=== PATIENT | female | born 1955 | race Caucasian/White ===

== ENCOUNTER 2024-11-19 10:07 | Inpatient (IN) | payer OTHER ==
[~2024-11-19] VITALS: Ht 162.6 cm; Wt 85.5 kg
[2024-11-19] VITALS (7 sets, daily range): BP systolic 118–138; BP diastolic 61–81; PULSE 79–94; RESP 16–18; TEMP 97.8–98; O2SAT 95–100
[2024-11-19] MEDS: VANCOMYCIN HCL 1000 MG VL ONE (09:33)
[~2024-11-19 10:07] MED LIST: ALBU108A5 IN; ASCO500T11 GT; CALC-134 XX; CELECOXIB 100 MG CAP PO ONE; CETI-195 PO; CRAN125T PO; FAMO20TA10 GT; FENO145T27 OR; IBUP-1456 PO; LISI40TA16 PO; MOME1AER3 IN; MULT-1018 PO; PROG200C21 PO; SERT-160 PO
[2024-11-19] MEDS ORDERED: ONDANSETRON HCL 4 MG/2 ML VIAL ONE (10:29)
[2024-11-19] MEDS ORDERED: PROPOFOL 10 MG/ML 20 ML IV ONE ×2 (10:29→12:56)
[2024-11-19] MEDS ORDERED: LIDOCAINE 1% INJ PF 5ML AMP ONE ×2 (10:29→11:27)
[2024-11-19] MEDS ORDERED: GLYCOPYRROLATE 0.2 MG/ML 1ML VIAL ONE (10:29)
[2024-11-19] MEDS ORDERED: DexAMETHasone SOD PHOS 10MG/1ML VIAL INJ ONE (10:29)
[2024-11-19] MEDS ORDERED: KETOROLAC TROMETH 30 MG/ML 1ML VIAL ONE (10:29)
[2024-11-19] MEDS: CELECOXIB 100 MG CAP ONE (10:38)
[2024-11-19] MEDS: ACETAMINOPHEN IV 1000 MG/100ML (10MG/ML) IV ONE (10:46)
[2024-11-19] MEDS: GABAPENTIN 300 MG CAP PO ONE (10:46)
[2024-11-19] MEDS: CELECOXIB 100 MG CAP PO ONE (10:46)
[2024-11-19] MEDS: ceFAZolin 2 GM/D5W50ml 50 ML IV ONE (11:15)
[2024-11-19] MEDS ORDERED: SODIUM CHLORIDE LOCK 10 ML ONE ×2 (11:25→11:27)
[2024-11-19] MEDS ORDERED: PHENYLEPHRINE HCL 10 MG/ML VL ONE (11:25)
[2024-11-19] MEDS: TRANEXAMIC ACID 20 ML ONE (11:30)
--- NOTE | 2024-11-19 12:58 | DVHOP2 ---
Operative Report - 2 Report Details Date: 11/19/24 Preop Diagnosis: Right hip degenerative arthritis Postop Diagnosis: Right hip degenerative arthritis Surgeon: Georgina Bai MD Washing Machine Operator: Moncho TOMAS Anesthesiologist: Johny Busby CRNA Anesthesia: Regional Drains: Mark closed wound suction Implant: Jaylen cup size 48 flat poly liner two acetabular screws size four femoral stem plus four neck with a 32 ceramic head Consent: The patient was informed of the risks and benefits of the procedure. These include but are not limited to complications of anesthesia, postoperative infection, incomplete relief of symptoms, recurrence of symptoms, damage to blood vessels, nerves and tendons, deep venous thrombosis, pulmonary embolism and possible need for repeat surgery in the future. Complications: None Estimated Blood Loss: 75 cc Fluids: See anesthesia record Findings: Osteophytes, denuded cartilage with eburnated bone Indications for Surgery: Right hip degenerative arthritis with severe pain and functional impairment despite nonoperative manage Name of Procedure Performed Right total hip arthroplasty Procedure Details Procedure Details: The patient was brought to the operating room and given spinal anesthetic with adequate analgesia obtained. The patient was positioned lateral decubitus with the operative side up, stabilized with hip positioners. Axillary roll applied and lower extremities well-padded. Preop patient received IV Ancef, cefepime and IV tranexamic acid. Surgical timeout was performed verifying patient, laterality and procedure. The hip and lower extremity were prepped and draped in sterile fashion. Incision was made over the greater trochanter. Subcutaneous dissection and hemostasis were performed with Bovie and aqua mantis. I identified the fascia which was incised with Bovie and Charnley retractor inserted. I identified the gluteus medius that was split at the junction of its anterior and middle thirds with Bovie then incised off the anterior greater trochanter. I incised the anterior gluteus minimus which was elevated off the capsule. I elevated the reflected head of the rectus. I then performed anterior capsulectomy with Bovie. I extended capsular incision posterior medially and superior laterally. The head was dislocated. Femoral neck cut was made with saw and head removed. Head diameter was calipered on the back table. I adjusted retractors to expose the acetabulum. I circumferentially removed labral tissue with Bovie. I removed foveal tissue with Bovie, curette and rongeur. I then began reaming sequentially paying attention to inclination and version as I went. I trialed which was somewhat stable and acetabular implant was brought into the field and tapped into the acetabulum with fair fixation achieved. I decided to place acetabular screws. I removed the cap drilled and placed a 20 mm screw with poor bite I then switched it to a 25 mm screw with only fair bite so I decided to place a 2nd screw. Again I removed the cap, drilled and placed a 20 mm screw with fair bite. I then brought up the flat liner which was spun to make sure there was no soft tissue entrapment then tapped in and stability verified. I then brought my attention to the proximal femur. The leg was placed in the sterile bag anteriorly. I cleaned up soft tissue at the greater trochanter shoulder with Bovie. I then used a rongeur to clip the lateral neck. I then used a box osteotome, canal finder and lateralizing rasp. I sequentially broached to size four. I revised the femoral neck cut with calcar planer. I trialed with a plus four neck length and 32 head which was stable. Intraoperative AP pelvis x-ray was obtained to verify length, offset and implant size. The hip was dislocated. Neck and head trial removed. Broach was removed. I tapped in the femoral implant with good fixation achieved. I cleaned and dried the Romero taper and tapped on the ceramic head. The hip was again reduced and tested for stability which was good. I irrigated with bactisurge. I placed a 2 grams of vancomycin in the deep and superficial wound. I repaired the minimus and medius to the anterior greater trochanter with #[5] FiberWire in running fashion . I oversewed the repair with 0 Vicryl. I repaired the fascia with #1 Ethibond i nterrupted [id number]. Deep subcutaneous tissue was closed with 0 Vicryl. Superficial subcutaneous tissue was closed with 2-0 Vicryl. The skin was closed with sree. I then applied the Mark closed wound suction. Patient tolerated the procedure well and was brought to the recovery room in stable condition. Condition Stable Disposition Still a Patient GEORGINA BAI MD Nov 19, 2024 12:58
[2024-11-19] MEDS ORDERED: ONDANSETRON HCL 4 MG/2 ML VIAL IV PRN ×2 (13:00→13:30)
[2024-11-19] MEDS ORDERED: ALBUTEROL SULF HFA 90MCG INH 200DOSE IN SCH (13:00)
--- NOTE | 2024-11-19 13:03 | DVH ---
EXAM: XY PELVIS AP CLINICAL INDICATION: INTRAOP TECHNIQUE: XY PELVIS AP Comparison: None FINDINGS/IMPRESSION: Postsurgical changes status post right total hip arthroplasty. Prior left total hip arthroplasty.
[2024-11-19] MEDS ORDERED: FLUMAZENIL 0.1 MG/ML INJ 10ML MDV IV PRN (13:30)
[2024-11-19] MEDS ORDERED: ePHEDrine SULFATE 50 MG/ML AMP IV PRN (13:30)
[2024-11-19] MEDS ORDERED: hydrALAZINE HCL 20 MG/ML VL IV PRN (13:30)
[2024-11-19] MEDS ORDERED: NALOXONE HCL 0.4 MG/ML VIAL IV PRN (13:30)
[2024-11-19] MEDS ORDERED: fentaNYL CITRATE 100 MCG/2 ML VL IV PRN (13:30)
[2024-11-19] MEDS ORDERED: HYDROmorphone HCL 2 MG/ML VL/or syr IV PRN (13:30)
[2024-11-19] MEDS ORDERED: ALBUTEROL MEDNEB 2.5 mg/3ml NEB NEB PRN (14:00)
--- NOTE | 2024-11-19 14:21 | DVH ---
CLINICAL INDICATION: postop TECHNIQUE: XY PELVIS AP Comparison: XY PELVIS AP on DOS: 11/19/24 FINDINGS/IMPRESSION: : There is no evidence of acute fracture or dislocation. Small volume gas in the left hip. Bilateral hip arthroplasty. Post left hip arthroplasty.
[2024-11-19] MEDS: oxyCODONE HCL 5MG TAB PO PRN ×2 (14:33→20:00)
[2024-11-19] MEDS: SODIUM CHLORIDE 0.9% 1,000 ML IV SCH (15:45)
[2024-11-19] MEDS: ceFAZolin 2 GM/D5W50ml 50 ML IV SCH (17:16)
[2024-11-19] MEDS: FAMOTIDINE 20 MG TAB PO SCH (17:17)
[2024-11-19] MEDS: KETOROLAC TROMETH 30 MG/ML 1ML VIAL IV SCH (17:17)
[2024-11-19] MEDS: ACETAMINOPHEN 325 MG TAB PO SCH (17:17)
[2024-11-19] MEDS: Mometasone Furoate-Formoterol (Dulera) IN SCH (22:00)
[2024-11-19] MEDS: PREGABALIN 25 MG CAP PO SCH (22:15)
[2024-11-20] VITALS (11 sets, daily range): BP systolic 121–145; BP diastolic 61–83; PULSE 73–99; RESP 12–18; TEMP 97.7–99.6; O2SAT 94–98
[2024-11-20] MEDS: oxyCODONE HCL 5MG TAB PO PRN (03:16)
[2024-11-20 06:56] LABS: Basophils # (auto) 0 10 ^3/uL (0-0.2); Basophils % (auto) 0.2 % (0.0-2.0); Eosinophils # (auto) 0 10 ^3/uL (0-0.8); Eosinophils % (auto) 0.1 % (0.0-7.0); Hematocrit 31.9 % (36.0-46.0); Hemoglobin 10.7 g/dL (12.2-16.2); Lymphocytes # (auto) 1.3 10 ^3/uL (0.4-5.4); Lymphocytes % (auto) 14.6 % (10.0-50.0); Mean Corpuscular Hemoglobin 30.4 pg (28.0-32.0); Mean Corpuscular Hgb Conc. 33.6 g/dL (32.0-36.0); Mean Corpuscular Volume 90.6 fL (80.0-100.0); Monocytes # (auto) 0.9 10 ^3/uL (0-1.3); Monocytes % (auto) 10.5 % (0.0-12.0); Neutrophils # (auto) 6.5 10 ^3/uL (1.6-8.6); Neutrophils % (auto) 74.6 % (37.0-80.0); Platelet Count (auto) 308 10^3/uL (140-450); Red Blood Cells 3.52 10^6/uL (4.0-5.20); Red Cell Distribution Width 14.4 % (11.8-14.3); White Blood Cell 8.8 10^3/uL (4.4-10.8)
[2024-11-20 07:07] LABS: Potassium 4.6 mmol/L (3.5-5.1)
[2024-11-20 07:08] LABS: Anion Gap 6 (5-15); Calcium 9.8 mg/dL (8.7-10.4); Carbon Dioxide 26 mmol/L (20-31)
[2024-11-20 07:09] LABS: Chloride 113 mmol/L (98-107); Sodium 145 mmol/L (136-145)
[2024-11-20 07:14] LABS: BUN/Creatinine Ratio 23.4 (10.0-20.0); Blood Urea Nitrogen 18 mg/dL (9-23); Glucose 122 mg/dL (74-106)
[2024-11-20] MEDS: PROGESTERONE MICRONIZED 200 MG PO SCH (10:00)
[2024-11-20] MEDS: LISINOPRIL 20 MG TAB PO SCH (10:59)
[2024-11-20] MEDS: SERTRALINE HCL 50 MG TAB PO SCH (11:00)
[2024-11-20] MEDS: APIXABAN 2.5 MG TAB PO SCH (11:00)
--- NOTE | 2024-11-20 13:38 | DVHPN2 ---
Progress Note - Dictate Date Seen: Nov 20, 2024 Medical Necessity Reason Pt with a Central, PICC or Fol: No Subjective Patient was lying comfortably in bed during my evaluation and reports some postoperative hip pain that is only minimally improved with the help pain medication. Patient reports that she is also experiencing a lot of pain to her hip and weakness from her knee down which is causing her leg to give out on her when she tries to walk and has been unable to walk as of yet but has been only able to stand and take a few steps at bedside. Patient was otherwise feeling well denying any other complaints or concerns during my evaluation. vital signs Vital Sign Date Time Temp Pulse Resp B/P (MAP) Pulse Ox O2 Delivery O2 Flow Rate FiO2 11/20/24 10:59 121/65 11/20/24 09:00 98.3 73 12 98 98.3 11/20/24 06:33 Room Air 11/20/24 06:33 0 21 Total Intake and Output 11/19/24 11/19/24 11/20/24 14:59 22:59 06:59 Intake Total 170 ml 530 ml 2050 ml Balance 170 ml 530 ml 2050 ml medications Current Medications Medications Dose Ordered Sig/Elroy Route Start Time Stop Time Status Last Admin Dose Admin Albuterol 8.5 mcg PRN IN 11/19/24 13:00 UNV Famotidine 20 mg DAILY PO 11/19/24 13:46 11/20/24 10:59 20 MG Patient Own Medication 10 mg DAILYP PRN PO 11/19/24 13:00 Lisinopril 40 mg DAILY PO 11/20/24 10:00 11/20/24 10:59 40 MG Patient Own Medication 1 aer BID IN 11/19/24 22:00 Patient Own Medication 200 mg DAILY PO 11/20/24 10:00 Sertraline HCl 150 mg DAILY PO 11/20/24 10:00 11/20/24 11:00 150 MG Pregabalin 50 mg BID PO 11/19/24 22:00 11/20/24 10:58 50 MG Apixaban 2.5 mg BID PO 11/20/24 10:00 12/25/24 09:59 11/20/24 11:00 2.5 MG Sodium Chloride 1,000 ml @ 125 mls/hr Q8H IV 11/19/24 11:30 11/20/24 03:20 125 MLS/HR Acetaminophen 650 mg Q6HP PO 11/19/24 18:00 11/20/24 12:20 650 MG Ketorolac Tromethamine 15 mg Q6HR IV 11/19/24 18:00 11/24/24 17:59 11/20/24 12:19 15 MG Ondansetron HCl 4 mg Q4HP PRN IV 11/19/24 13:00 Oxycodone HCl 5 mg Q4HP PRN PO 11/19/24 11:30 11/20/24 03:16 5 MG Oxycodone HCl 10 mg Q4HP PRN PO 11/19/24 11:30 11/20/24 11:07 10 MG Albuterol 2.5 mg Q6HPRN PRN NEB 11/19/24 14:00 objective A&O x4 in no acute distress Hip range of motion grossly limited with pain on movement Mark dressing clean, dry, intact, and maintaining suction No distal edema or calf tenderness to palpation Neurovascularly intact with cap refill less than 2 seconds laboratory and microbiology Laboratory Tests 11/20/24 06:01 Test 11/20/24 06:01 Range/Units Serum Glucose 122 H 74-106 mg/dL Assessment/Plan Continue current management as well as pain control and physical therapy and advised patient to remain weight-bearing as tolerated. I informed the patient that the weakness that she is experiencing is likely a side effect from the anesthesia and nerve block and we will keep the patient in the additional night for re-evaluation tomorrow for resolution of her weakness and improvement of her pain. Patient understood and agreed. Plan discussed with: Patient SWEETIE PINEDA Nov 20, 2024 13:38
[2024-11-21] VITALS (8 sets, daily range): BP systolic 117–148; BP diastolic 62–79; PULSE 63–108; RESP 14–18; TEMP 98–99.5; O2SAT 93–98
--- NOTE | 2024-11-21 16:59 | DVHDS2 ---
Discharge Summary Date of Admission Nov 19, 2024 at 11:28 Date of Discharge: Nov 21, 2024 Labs/Diagnostic Data: Laboratory Results Test 11/20/24 06:01 White Blood Count 8.8 10^3/uL (4.4-10.8) Red Blood Count 3.52 10^6/uL (4.0-5.20) Hemoglobin 10.7 g/dL (12.2-16.2) Hematocrit 31.9 % (36.0-46.0) Mean Corpuscular Volume 90.6 fL (80.0-100.0) Mean Corpuscular Hemoglobin 30.4 pg (28.0-32.0) Mean Corpuscular Hemoglobin Concent 33.6 g/dL (32.0-36.0) Red Cell Distribution Width 14.4 % (11.8-14.3) Platelet Count 308 10^3/uL (140-450) Mean Platelet Volume 9.3 fL (6.9-10.8) Neutrophils (%) (Auto) 74.6 % (37.0-80.0) Lymphocytes (%) (Auto) 14.6 % (10.0-50.0) Monocytes (%) (Auto) 10.5 % (0.0-12.0) Eosinophils (%) (Auto) 0.1 % (0.0-7.0) Basophils (%) (Auto) 0.2 % (0.0-2.0) Neutrophils # (Auto) 6.5 10 ^3/uL (1.6-8.6) Lymphocytes # (Auto) 1.3 10 ^3/uL (0.4-5.4) Monocytes # (Auto) 0.9 10 ^3/uL (0-1.3) Eosinophils # (Auto) 0 10 ^3/uL (0-0.8) Basophils # (Auto) 0 10 ^3/uL (0-0.2) Nucleated Red Blood Cells 0.0 % Sodium Level 145 mmol/L (136-145) Potassium Level 4.6 mmol/L (3.5-5.1) Chloride Level 113 mmol/L (98-107) Carbon Dioxide Level 26 mmol/L (20-31) Anion Gap 6 (5-15) Blood Urea Nitrogen 18 mg/dL (9-23) Creatinine 0.77 mg/dL (0.550-1.02) Glomerular Filtration Rate Calc 83 mL/min (>90) BUN/Creatinine Ratio 23.4 (10.0-20.0) Serum Glucose 122 mg/dL (74-106) Calcium Level 9.8 mg/dL (8.7-10.4) Other Laboratory Tests 11/20/24 06:01 Brief Hx & Hospital Course: Patient was brought to the hospital on Monday to undergo a right total hip arthroplasty, she tolerated the procedure well without complications and was kept overnight for postoperative observation. Patient reports that her pain has been well controlled since her surgery but was experiencing a lot of weakness to her right lower extremity as well as numbness to her knee which caused it to give out on her when she tried walking and was feeling unsteady and therefore kept her an additional midnight to evaluate for resolution of her symptoms. Today the patient reports that the numbness to her knee has resolved and although she has some weakness to her knee she is able to move it a little bit better today and was able to walk with the help of physical therapy and her walker and was able to get down the eduardo around the nurses station and back to her bed albeit slow. Patient is otherwise feeling well denying any other complaints or concerns during my evaluation and would like to go home. Condition at Discharge: Stable Final Diagnosis/Problems List Right hip degenerative arthritis Discharge Disposition: Home (Patient to be considered for home health services for assistance during the acute phase of her recovery) Discharge Instruct/Medications Diet: Regular Activity: See Comment Activity comment: Patient advised to remain weight-bearing as tolerated with the assistance of a walker Follow Up/Referral: Patient instructed to follow up with our office in 10-14 days for her 1st postoperative evaluation Medications: Rx sent via our outpatient EMR system Discharge Statement: "Patient was advised to return to the ER or call 911 if any headaches, dizziness, shortness of breath, chest pain, abdominal pain, bleeding, fevers, or worsening of medical condition. Patient was counseled about treatment plan, medications, possible side effects, patientverbalized understanding. All questions were answered to the best of my ability. This discharge took greater then 30 minutes in planning, reviewing documentation, counseling the patient, and discussing with other team members." ASSESSMENT ASSESSMENT Assessment Right hip degenerative arthritis SWEETIE PINEDA Nov 21, 2024 16:59
--- NOTE | 2024-11-21 17:02 | DVHPN2 ---
Progress Note - Dictate Date Seen: Nov 21, 2024 Medical Necessity Reason Pt with a Central, PICC or Fol: No Subjective Patient was lying comfortably in bed during my evaluation and reports some postoperative hip pain that is somewhat improved with the help pain medication. Patient reports that the numbness to her knee has resolved but continues to have some weakness to her leg although she does feel more stable and stronger today than yesterday.. Patient was otherwise feeling well denying any other complaints or concerns during my evaluation and would like to go home. vital signs Vital Sign Date Time Temp Pulse Resp B/P (MAP) Pulse Ox O2 Delivery O2 Flow Rate FiO2 11/21/24 13:00 99.5 108 14 142/72 (95) 94 99.5 11/21/24 07:33 Room Air 11/21/24 07:33 0 21 Total Intake and Output 11/20/24 11/20/24 11/21/24 15:00 23:00 07:00 Intake Total 1120 ml 1040 ml Balance 1120 ml 1040 ml medications Current Medications Medications Dose Ordered Sig/Elroy Route Start Time Stop Time Status Last Admin Dose Admin Albuterol 8.5 mcg PRN IN 11/19/24 13:00 UNV Famotidine 20 mg DAILY PO 11/19/24 13:46 11/21/24 10:13 20 MG Patient Own Medication 10 mg DAILYP PRN PO 11/19/24 13:00 Lisinopril 40 mg DAILY PO 11/20/24 10:00 11/21/24 10:14 40 MG Patient Own Medication 1 aer BID IN 11/19/24 22:00 Patient Own Medication 200 mg DAILY PO 11/20/24 10:00 Sertraline HCl 150 mg DAILY PO 11/20/24 10:00 11/21/24 10:12 150 MG Pregabalin 50 mg BID PO 11/19/24 22:00 11/21/24 10:12 50 MG Apixaban 2.5 mg BID PO 11/20/24 10:00 12/25/24 09:59 11/21/24 10:12 2.5 MG Sodium Chloride 1,000 ml @ 125 mls/hr Q8H IV 11/19/24 11:30 11/20/24 11:30 125 MLS/HR Acetaminophen 650 mg Q6HP PO 11/19/24 18:00 11/21/24 12:10 650 MG Ketorolac Tromethamine 15 mg Q6HR IV 11/19/24 18:00 11/24/24 17:59 11/21/24 12:11 15 MG Ondansetron HCl 4 mg Q4HP PRN IV 11/19/24 13:00 Oxycodone HCl 5 mg Q4HP PRN PO 11/19/24 11:30 11/20/24 22:38 5 MG Oxycodone HCl 10 mg Q4HP PRN PO 11/19/24 11:30 11/20/24 11:07 10 MG Albuterol 2.5 mg Q6HPRN PRN NEB 11/19/24 14:00 objective A&O x4 in no acute distress Hip range of motion grossly limited with pain on movement Mark dressing clean, dry, intact, and maintaining suction No distal edema or calf tenderness to palpation Neurovascularly intact with cap refill less than 2 seconds laboratory and microbiology Laboratory Tests 11/20/24 06:01 Test 11/20/24 06:01 Range/Units Serum Glucose 122 H 74-106 mg/dL Assessment/Plan Patient to be discharged home and advised to remain weight-bearing as tolerated with the assistance of a walker. I also advised the patient to maintain her dressings clean, dry, intact, and maintaining suction and to call our office if she has any questions or concerns. I also advised the patient to follow up with our office in 10-14 days for her 1st postoperative evaluation. Rx sent via our outpatient EMR system. Plan discussed with: Patient SWEETIE PINEDA Nov 21, 2024 17:02
== END 2024-11-21 19:17 | disposition home or self-care (01) | DRG 470 ==
LOC: SUR 10:07 → OVERFLOW 11:28 → EAST 15:18
PROVIDERS: ADMIT Orthopaedic Surgery; ATTEND Orthopaedic Surgery
PROC: 0SR904A Replacement of Right Hip Joint with Ceramic on Polyethylene Synthetic Substitute, Uncemented, Open Approach (ICD-10-PCS; principal; 2024-11-19 11:06)
DX: M16.11 Unilateral primary osteoarthritis, right hip (principal); I10 Essential (primary) hypertension; J44.9 Chronic obstructive pulmonary disease, unspecified; J45.909 Unspecified asthma, uncomplicated; Z79.899 Other long term (current) drug therapy
CPT/HCPCS: 36415; 72170; 80048; 85025; 86850; 86900; 86901; 97110; 97116; 97163; 97530; G0378; J0131; J1100; J1885; J2405; J2704